=== PATIENT | female | born 1990 | race American Indian/Alaskan Native ===

== ENCOUNTER 2018-07-22 09:46 | Emergency (ER) | payer BC, OTHER ==
[2018-07-22 09:50] VITALS: BMI 24.7
[2018-07-22 09:53] VITALS: BP 115/80; PULSE 98; RESP 18; TEMP 97.3; O2SAT 98
[2018-07-22] MEDS ORDERED: Silver Sulfadiazine 1% Cream (20 gm) TOP STA (10:17)
--- NOTE | 2018-07-22 10:21 | C.PDOC ---
History Of Present Illness 28 year old female presents to ED with a burn that occurred on her left wrist yesterday. Patient states that this happened while she was cooking when some hot water spilled on her. She admits to not taking any Motrin or Tylenol. She also complains of pain in her jaw for the past week. She has taken no over the counter pain medication for this pain. She also admits to having experienced cough and congestion for the past week. Patient denies any loss of sensation or weakness. Time Seen by Provider: 07/22/18 09:57 Chief Complaint (Nursing): Abnormal Skin Integrity History Per: Patient History/Exam Limitations: no limitations Onset/Duration Of Symptoms: Days (1) Current Symptoms Are (Timing): Still Present Past Medical History Reviewed: Historical Data, Nursing Documentation, Vital Signs Vital Signs: Last Vital Signs Temp 97.3 F L 07/22/18 09:50 Pulse 98 H 07/22/18 09:50 Resp 18 07/22/18 09:50 BP 115/80 07/22/18 09:50 Pulse Ox 98 07/22/18 09:50 - Medical History PMH: Anemia, Anxiety Denies: Bipolar Disorder, Depression, Paranoia, Post Traumatic Stress Disorder, Schizophrenia Surgical History: No Surg Hx - [facility] Procedures REPAIR OB LACERATION NEC (01/19/14) Family History: States: Unknown Family Hx - Social History Hx Tobacco Use: No Hx Alcohol Use: No Hx Substance Use: No - Immunization History Hx Tetanus Toxoid Vaccination: No Hx Influenza Vaccination: No Hx Pneumococcal Vaccination: No Review Of Systems Constitutional: Negative for: Fever, Chills, Weakness ENT: Positive for: Nose Congestion, Other (jaw pain) Cardiovascular: Negative for: Chest Pain, Palpitations Respiratory: Positive for: Cough Gastrointestinal: Negative for: Nausea, Vomiting Skin: Positive for: Other (Burn to the left wrist) Neurological: Negative for: Weakness, Numbness, Dizziness Physical Exam - Physical Exam Appears: Well, Non-toxic, No Acute Distress Skin: Normal Color, Warm, Dry Head: Atraumatic, Normacephalic, Other (FROM of the jaw) Throat: Normal, No Erythema, No Exudate Neck: Normal ROM, Supple Chest: Symmetrical, No Deformity Cardiovascular: Rhythm Regular, No Murmur Respiratory: No Accessory Muscle Use Extremity: Normal ROM, Capillary Refill (<2 seconds), Other (1st degree burn on the left wrist) Neurological/Psych: Oriented x3, Normal Speech, Normal Cognition ED Course And Treatment O2 Sat by Pulse Oximetry: 98 (RA) Progress Note: Patient given Silvadene 1% TOP and Tylenol PO. Upon reassess ment, patient is resting comfortably, in no distress, and is stable for discharge. Patient is advised to see her PMD within 1-2 days. Patient is advised to return to ED if symptoms persist or worsen. Disposition Counseled Patient/Family Regarding: Diagnosis, Need For Followup, Rx Given - Disposition Referrals: Devang Luke, [facility], SHIPPING RECEIVING MANAGER [Advanced Practice Nurse] - Disposition: HOME/ ROUTINE Disposition Time: 10:20 Condition: STABLE Additional Instructions: FOLLOW UP WITH YOUR DOCTOR IN 1-2 DAYS USE MEDICATIONS DIRECTED RETURN TO ER IF SYMPTOMS WORSEN Prescriptions: Benzonatate [Tessalon Perles] 100 mg PO BID PRN #15 sgl PRN Reason: Cough Ibuprofen [Motrin Tab] 600 mg PO Q6 PRN #30 tab PRN Reason: fever/pain Oxymetazoline 0.05% [Oxymetazoline HCl 30 Ml] 1 ml NS BID PRN #1 bottle PRN Reason: Nasal Congestion Silver Sulfadiazine 1% [Silver Sulfadiazine] 1 appl TP BID #1 jar Instructions: Viral Upper Respiratory Infection, Adult (DC), Skin Batista (DC), Temporomandibular Joint (TMJ) Disorders (DC) Forms: [employer] (Gambian) Print Language: [email or web address] - Clinical Impression Clinical Impression: Viral upper respiratory infection, Superficial burn of left wrist, TMJ arthralgia - Scribe Statement The provider has reviewed the documentation as recorded by the Scribe (Gretel Richards) All medical record entries made by the Scribe were at my direction and personally dictated by me. I have reviewed the chart and agree that the record accurately reflects my personal performance of the history, physical exam, medical decision making, and the department course for this patient. I have also personally directed, reviewed, and agree with the discharge instructions and disposition.
[2018-07-22] MEDS ORDERED: Silver Sulfadiazine 1% Cream (20 gm) ONE (10:22)
== END 2018-07-22 10:59 | disposition home or self-care (01) ==
LOC: C.ER 09:46
DX: T23.172A Burn of first degree of left wrist, initial encounter (principal); X11.8XXA Contact with other hot tap-water, initial encounter; Y93.G3 Activity, cooking and baking; J06.9 Acute upper respiratory infection, unspecified; M26.629 Arthralgia of temporomandibular joint, unspecified side